=== PATIENT | male | born 1960 | race Caucasian/White ===

== ENCOUNTER 2017-09-06 09:08 | Inpatient (IN) | payer BC ==
[2017-09-06] MEDS ORDERED: ASPIRIN 325 MG TABLET PO ONE (09:32)
--- NOTE | 2017-09-06 09:34 | ER Document Report ---
ED Medical Screen (RME) - General Chief Complaint: Chest Pain > 30 Stated Complaint: CHEST PAIN Time Seen by Provider: 09/06/17 09:32 Mode of Arrival: Ambulatory Information source: Patient TRAVEL OUTSIDE OF THE [place] IN LAST 30 DAYS: No - HPI Patient complains to provider of: cp Onset: This morning - pt with onset of SSCP earlier this am -- has not had this before. Took "baby ASA" earlier - Related Data Allergies/Adverse Reactions: IVP dye Allergy (Uncoded 09/06/17 09:28) Physical Exam - Vital signs Vitals: Temp Pulse Resp BP Pulse Ox 97.8 F 79 20 154/93 H 93 09/06/17 09:24 09/06/17 09:24 09/06/17 09:24 09/06/17 09:24 09/06/17 09:24 Course - Vital Signs Vital signs: Temp Pulse Resp BP Pulse Ox 97.8 F 79 20 154/93 H 93 09/06/17 09:24 09/06/17 09:24 09/06/17 09:24 09/06/17 09:24 09/06/17 09:24
[2017-09-06 09:57] LABS: ABSOLUTE BASOPHILS # (AUTO) 0.1 10^3/uL (0.0-0.2); ABSOLUTE EOSINOPHILS # (AUTO) 0.1 10^3/uL (0.0-0.6); ABSOLUTE LYMPHOCYTES (AUTO) 2.6 10^3/uL (0.5-4.7); ABSOLUTE MONOCYTES (AUTO) 0.7 10^3/uL (0.1-1.4); BASOPHILS % (AUTO) 0.8 % (0-2); EOSINOPHILS % (AUTO) 1.3 % (0-6); HEMATOCRIT 49.4 % (37.9-51.0); HEMOGLOBIN 17.3 g/dL (13.5-17.0); LYMPHOCYTES % (AUTO) 27.6 % (13-45); MEAN CORPUSCULAR HEMOGLOBIN 31.8 pg (27.0-33.4); MEAN CORPUSCULAR VOLUME 91 fl (80-97); MONOCYTES % (AUTO) 7.5 % (3-13); PLATELET COUNT 204 10^3/uL (150-450); RED BLOOD COUNT 5.44 10^6/uL (4.35-5.55); RED CELL DISTRIBUTION WIDTH 12.5 % (11.5-14.0); SEGMENTED NEUTROPHILS % (AUTO) 62.8 % (42-78); TOTAL CELLS COUNTED % (AUTO) 100 %; WHITE BLOOD COUNT 9.6 10^3/uL (4.0-10.5)
[2017-09-06] MEDS ORDERED: LIDOCAINE 2% VISCOUS SOLN 20 ML UDCUP PO ONE (10:08)
[2017-09-06] MEDS ORDERED: MAG HYDROX/AL HYDROX/SIMETH SUSP 30 ML UDCUP PO ONE (10:08)
[2017-09-06] MEDS ORDERED: METOCLOPRAMIDE HCL ORAL SOLN 10 MG/10 ML UDCUP PO ONE (10:08)
[2017-09-06 10:18] LABS: ALANINE AMINOTRANSFERASE 45 U/L (21-72); ALBUMIN 4.4 g/dL (3.5-5.0); ALKALINE PHOSPHATASE 73 U/L (38-126); ANION GAP 9 (5-19); ASPARTATE AMINO TRANSFERASE 27 U/L (17-59); BILIRUBIN,DIRECT 0.3 mg/dL (0.0-0.4); BILIRUBIN,TOTAL 1.4 mg/dL (0.2-1.3); BLOOD UREA NITROGEN 19 mg/dL (7-20); CARBON DIOXIDE 27 mmol/L (22-30); CHLORIDE 105 mmol/L (98-107); CREATINE KINASE 96 U/L (55-170); GLUCOSE 145 mg/dL (75-110); POTASSIUM 4.4 mmol/L (3.6-5.0); SODIUM 141.2 mmol/L (137-145); TOTAL PROTEIN 7.2 g/dL (6.3-8.2)
[2017-09-06 10:28] LABS: CREATINE KINASE MB 1.84 ng/mL (<4.55)
[2017-09-06 10:31] LABS: TROPONIN I 0.034 ng/mL
--- NOTE | 2017-09-06 10:43 | RADIOLOGY REPORT (SQ) ---
EXAM DESCRIPTION: CHEST PA/LAT COMPLETED DATE/TIME: 09/06/2017 10:06 am REASON FOR STUDY: cp COMPARISON: 01/06/2008 EXAM PARAMETERS: NUMBER OF VIEWS: two views TECHNIQUE: Digital Frontal and Lateral radiographic views of the chest acquired. RADIATION DOSE: NA LIMITATIONS: none FINDINGS: LUNGS AND PLEURA: No infiltrate, masses or pneumothorax. Left pleural thickening. MEDIASTINUM AND HILAR STRUCTURES: No masses or contour abnormalities. HEART AND VASCULAR STRUCTURES: Heart normal size. No evidence for failure. BONES: No acute findings. HARDWARE: None in the chest. OTHER: No other significant finding. IMPRESSION: No acute disease. Left pleural thickening. TECHNICAL DOCUMENTATION: JOB ID: [id number] [id number] 2010 [employer]- All Rights Reserved
[2017-09-06] MEDS ORDERED: NITROGLYCERIN 2% OINTMENT 1 GM PACKET TP ONE (12:19)
[2017-09-06] MEDS ORDERED: DIPHENHYDRAMINE HCL 50 MG/ML VIAL IV ONE (12:40)
[2017-09-06] MEDS ORDERED: FAMOTIDINE INJ/PF 20 MG/2 ML SDV IV ONE (12:40)
[2017-09-06] MEDS ORDERED: METHYLPREDNISOLONE INJ 125 MG/2 ML SDV IV ONE (12:40)
[2017-09-06] MEDS ORDERED: NORMAL SALINE 1000 ML 1,000 ML IV ONE (12:43)
--- NOTE | 2017-09-06 13:31 | RADIOLOGY REPORT (SQ) ---
EXAM DESCRIPTION: CT ABD/PELVIS WITH IV ONLY COMPLETED DATE/TIME: 09/06/2017 1:09 pm REASON FOR STUDY: epigastric pain COMPARISON: 2007. TECHNIQUE: CT scan of the abdomen and pelvis performed using helical scanning technique with dynamic intravenous contrast injection. No oral contrast. Images reviewed with lung, soft tissue, and bone windows. Reconstructed coronal and sagittal MPR images reviewed. Delayed images for evaluation of the urinary system also acquired. All images stored on PACS. All CT scanners at this facility use dose modulation, iterative reconstruction, and/or weight based d osing when appropriate to reduce radiation dose to as low as reasonably achievable (ALARA). [facility]: Dose Right [facility]: CareDose [facility]: Dose Right [facility]: Teradose 4D [facility]: [employer] CONTRAST TYPE AND DOSE: contrast/concentration: Isovue 370.00 mg/ml; Total Contrast Delivered: 100.0 ml; Total Saline Delivered: 70.0 ml RENAL FUNCTION: Creatinine 1.35 RADIATION DOSE: CT Rad equipment meets quality standard of care and radiation dose reduction techniq ues were employed. CTDIvol: 15.6 - 18.2 mGy. DLP: 1883 mGy-cm.. LIMITATIONS: None. FINDINGS: LOWER CHEST: No significant findings. No nodules or infiltrates. LIVER: Normal size. No masses. No dilated ducts. SPLEEN: Normal size. No focal lesions. PANCREAS: No masses. No significant calcifications. No adjacent inflammation or peripancreatic fluid collections. Pancreatic duct not dilated. GALLBLADDER: Solitary sizable gallstone. Mild gallbladder distention but no wall thickening or surro unding fluid to suggest acute disease. No duct dilatation. ADRENAL GLANDS: No significant masses or asymmetry. RIGHT KIDNEY AND URETER: No solid masses. No significant calcification. No hydronephrosis or hydroure ter. LEFT KIDNEY AND URETER: No solid masses. No significant calcification. No hydronephrosis or hydrouret er. AORTA AND VESSELS: Atherosclerotic aorta. Patent major arterial and venous branches. No aneurysm or dissection. RETROPERITONEUM: No retroperitoneal adenopathy, hemorrhage or masses. BOWEL AND PERITONEAL CAVITY: Diverticulosis throughout the descending and sigmoid colon. Mild areas of wall thickening. Subtle adjacent areas of fat stranding could be chronic scar or reflect acute di verticulitis. No perforation or fluid collections. No small bowel obstruction evident. APPENDIX: Surgically absent. PELVIS: No mass. No free fluid. Normal bladder. ABDOMINAL WALL: Minimal fat containing umbilical hernia. No abdominal wall mass or bowel containing hernia. BONES: No significant or acute findings. OTHER: No other significant finding. IMPRESSION: 1. Cholelithiasis without CT evidence of acute cholecystitis. 2. Diverticulosis. Mil d diverticulitis could be present, depending on clinical presentation. 3. Atherosclerosis. TECHNICAL DOCUMENTATION: JOB ID: [id number] Quality ID # [id number]: Final reports with documentation of one or more dose reduction techniques (e.g., Au tomated exposure control, adjustment of the mA and/or kV according to patient size, use of iterative reconstruction technique) 2010 [employer]- All Rights Reserved
--- NOTE | 2017-09-06 13:31 | EKG REPORT ---
SEVERITY:- ABNORMAL ECG - SINUS RHYTHM MINIMAL ST DEPRESSION,RANJANA LATERAL LEADS : Confirmed by: Adalberto Burnham MD 06-Sep-2017 13:30:32
--- NOTE | 2017-09-06 16:00 | ER Document Report ---
ED General - General Chief Complaint: Chest Pain > 30 Stated Complaint: CHEST PAIN Time Seen by Provider: 09/06/17 09:32 Mode of Arrival: Ambulatory TRAVEL OUTSIDE OF THE [place] IN LAST 30 DAYS: No - HPI Patient complains to provider of: Chest pain epigastric pain Notes: History of diabetes. Patient denies any family history. Patient states this morning around 8:00 had substernal and epigastric pain no radiation that brought him to his knees. Patient did have associated nausea. Patient states now improvement of pain however still takes a deep breath and can feel in his epigastric region. Patient also states it does hurt when he touches his epigastric and substernal region. Patient denies any cardiac testing past denies any cardiac issues. Patient resting comfortably upon my evaluation with normal vital signs. - Related Data Allergies/Adverse Reactions: IVP dye Allergy (Uncoded 09/06/17 09:28) Past Medical History - General Information source: Patient - Social History Smoking Status: Former Smoker Frequency of alcohol use: None Drug Abuse: Marijuana Family History: Reviewed & Not Pertinent Patient has suicidal ideation: No Patient has homicidal ideation: No - Past Medical History Cardiac Medical History: Reports: Hx Hypercholesterolemia, Hx Hypertension Endocrine Medical History: Reports: Hx Diabetes Mellitus Type 2 Renal/ Medical History: Denies: Hx Peritoneal Dialysis Past Surgical History: Reports: Hx Appendectomy Review of Systems - Review of Systems Constitutional: No symptoms reported EENT: No symptoms reported Cardiovascular: Chest pain Respiratory: No symptoms reported Gastrointestinal: Nausea Genitourinary: No symptoms reported Male Genitourinary: No symptoms reported Musculoskeletal: No symptoms reported Skin: No symptoms reported Hematologic/Lymphatic: No symptoms reported Neurological/Psychological: No symptoms reported -: Yes All other systems reviewed and negative Physical Exam - Vital signs Vitals: Temp Pulse Resp BP Pulse Ox 97.8 F 79 20 154/93 H 93 09/06/17 09:24 09/06/17 09:24 09/06/17 09:24 09/06/17 09:24 09/06/17 09:24 Interpretation: Normal - General General appearance: Appears well, Alert - HEENT Head: Normocephalic, Atraumatic Eyes: Normal Pupils: PERRL - Respiratory Respiratory status: No respiratory distress Chest status: Tender - Tenderness palpation of the anterior chest Breath sounds: Normal Chest palpation: Normal - Cardiovascular Rhythm: Regular Heart sounds: Normal auscultation Murmur: No - Abdominal Inspection: Normal Distension: No distension Bowel sounds: Normal Tenderness: Tender - Epigastric tenderness no right upper quadrant no left upper quadrant tenderness epigastric tenderness mild. No: McBurney's point, Lo's sign, Guarding, Rebound Organomegaly: No organomegaly - Back Back: Normal, Nontender - Extremities General upper extremity: Normal inspection, Nontender, Normal color, Normal ROM , Normal temperature General lower extremity: Normal inspection, Nontender, Normal color, Normal ROM , Normal temperature, Normal weight bearing. No: Christie's sign - Neurological Neuro grossly intact: Yes Cognition: Normal Orientation: AAOx4 [place] Coma Scale Eye Opening: Spontaneous Josue Coma Scale Verbal: Oriented [place] Coma Scale Motor: Obeys Commands [place] Coma Scale Total: 15 Speech: Normal Motor strength normal: LUE, RUE, LLE, RLE Sensory: Normal - Psychological Associated symptoms: Normal affect, Normal mood - Skin Skin Temperature: Warm Skin Moisture: Dry Skin Color: Normal Course - Re-evaluation Re-evalutation: 09/06/17 15:57 Patient laboratory studies using concentration along with slightly elevated lipase. Slightly elevated total bilirubin to as well. Patient does not have any right upper quadrant tenderness mostly epigastric. Patient's troponin did return 0.03 with an EKG showing some ST segment depressions V3 V4 V5 no signs of STEMI however patient continued to have some dull aching in the area. This was not relieved with a GI cocktail. Patient was given nitroglycerin which did relieve his pain. Patient did undergo CT scan for evaluation of further GI causes pancreatitis is not seen on CT scan patient does have some gallstones are no signs of acute cholecystitis. CAT scan does mention possible segment of diverticulitis however patient has no lower abdominal tenderness and do not suspect diverticulitis at this time. I am concerned with EKG changes and chest pain patient with possible underlying cardiac issue for his pain. Also cannot totally rule out GI causes the patient does have gallstones although I do not see overt symptoms at this time on CAT scan. Laboratory studies also did not include or exclude GI symptoms slightly elevated lipase possibly gastritis although I will believe this would improve a GI cocktail. Did discuss with the hospitalist agrees that cardiac cause will need to be ruled out. Patient was admitted for further evaluation. - Vital Signs Vital signs: Temp Pulse Resp BP Pulse Ox 97.8 F 79 28 H 125/76 94 09/06/17 09:24 09/06/17 09:24 09/06/17 14:01 09/06/17 14:01 09/06/17 14:01 - Laboratory Result Diagrams: 09/06/17 09:45 09/06/17 09:45 Laboratory results interpreted by me: 09/06/17 09/06/17 09/06/17 09:45 09:45 09:45 Hgb 17.3 H Creatinine 1.35 H Est GFR (Non-Af Amer) 55 L Glucose 145 H Total Bilirubin 1.4 H Lipase 447.9 H Discharge - Discharge Clinical Impression: Slightly elevated lipase Chest pain Qualifiers: Chest pain type: unspecified Qualified Code(s): R07.9 - Chest pain, unspecified Cholelithiasis Qualifiers: Cholelithiasis location: gallbladder Cholecystitis presence: without cholecystitis Biliary obstruction: without biliary obstruction Qualified Code(s) : K80.20 - Calculus of gallbladder without cholecystitis without obstruction Condition: Good Disposition: ADMITTED OBSERVATION Admitting Provider: Hospitalist - [facility] Unit Admitted: Telemetry
[2017-09-06] MEDS ORDERED: NORMAL SALINE 1000 ML 1,000 ML IV PRN (17:47)
[2017-09-06] MEDS: OXYCODONE-ACETAMINOPHEN 5-325 MG TABLET PO PRN ×2 (18:20→23:20)
--- NOTE | 2017-09-06 18:21 | PDOC H&P ---
History of Present Illness Admission Date/PCP: 09/06/17 16:30 Patient complains of: chest pain/ epigastric pain History of Present Illness: EMEKA CHAUDHARI is a 56 year old male who presented to the ED with a 12 hour history of chest pain epigastric pain Patient was well until about 12 hours ago when he started having pressure-like in the epigastrium felt extremely nauseous the pain radiated to the back; he had no fever no chills Patient recalls a similar pain about a week ago that subsided and did not recur until now Upon evaluation in the ED the pain was about 8/10 severe It decreased in intensity EKG and cardiac enzymes were performed and were within normal range A CAT scan abdomen and pelvis was suggestive of gallstones and a lipase of was slightly elevated Patient was admitted on the hospitalist service for further evaluation and care to telemetry unit as an inpatient Past Medical History Cardiac Medical History: Reports: Hyperlipidema, Hypertension Endocrine Medical History: Reports: Diabetes Mellitus Type 2 Past Surgical History Past Surgical History: Reports: Appendectomy Social History Smoking Status: Former Smoker - Advance Directive Resuscitation Status: Full Code Surrogate healthcare decision maker:: Sondra Family History Family History: Reviewed & Not Pertinent, CAD, DM Parental Family History Reviewed: Yes Children Family History Reviewed: Yes Sibling(s) Family History Reviewed.: Yes Medication/Allergy Home Medications: Amlodipine Besylate 1 tab PO DAILY 09/06/17 Aspirin [Aspirin EC] 81 mg PO DAILY 09/06/17 Losartan/Hydrochlorothiazide [Losartan-Hctz 50-12.5 mg Tab] 1 tab PO DAILY 09/06 Metformin HCl [Metformin HCl ER] 500 mg PO DAILY 09/06/17 [place]-3/Dha/Epa/Fish Oil [Fish Oil 500 mg Softgel] 2 cap PO DAILY 09/06/17 Allergies/Adverse Reactions: IVP dye Allergy (Uncoded 09/06/17 09:28) Review of Systems Constitutional: ABSENT: chills, fever(s), headache(s), weight gain, weight loss Eyes: ABSENT: visual disturbances Ears: ABSENT: hearing changes Cardiovascular: ABSENT: chest pain, dyspnea on exertion, edema, orthropnea, palpitations Respiratory: ABSENT: cough, hemoptysis Gastrointestinal: PRESENT: abdominal pain - epigastric radiates to back, nausea , vomiting Genitourinary: ABSENT: dysuria, hematuria Musculoskeletal: ABSENT: joint swelling Integumentary: ABSENT: rash, wounds Neurological: ABSENT: abnormal gait, abnormal speech, confusion, dizziness, focal weakness, syncope Psychiatric: ABSENT: anxiety, depression, homidical ideation, suicidal ideation Hematologic/Lymphatic: ABSENT: easy bleeding, easy bruising Physical Exam Vital Signs: Temp Pulse Resp BP Pulse Ox 97.8 F 79 13 113/72 94 09/06/17 09:24 09/06/17 09:24 09/06/17 17:02 09/06/17 16:01 09/06/17 17:02 General appearance: PRESENT: no acute distress, cooperative Head exam: PRESENT: atraumatic Eye exam: PRESENT: conjunctiva pink, EOMI, PERRLA. ABSENT: scleral icterus Ear exam: PRESENT: normal external ear exam Neck exam: ABSENT: carotid bruit, JVD, lymphadenopathy, thyromegaly Respiratory exam: PRESENT: clear to auscultation andrea. ABSENT: rales, rhonchi, wheezes Cardiovascular exam: PRESENT: RRR. ABSENT: diastolic murmur, rubs, systolic murmur Pulses: PRESENT: normal dorsalis pedis pul GI/Abdominal exam: PRESENT: tenderness - epigastrium no guarding or rebound. ABSENT: distended, guarding, rebound Rectal exam: PRESENT: deferred Neurological exam: PRESENT: alert Psychiatric exam: PRESENT: appropriate affect, normal mood. ABSENT: homicidal ideation, suicidal ideation Skin exam: PRESENT: dry, intact, warm. ABSENT: cyanosis, rash Results Impressions: Chest X-Ray 09/06/17 09:32 IMPRESSION: No acute disease. Left pleural thickening. Abdomen/Pelvis CT 09/06/17 12:20 IMPRESSION: 1. Cholelithiasis without CT evidence of acute cholecystitis. 2. Diverticulosis. Mild diverticulitis could be present, depending on clinical presentation. 3. Atherosclerosis. Assessment & Plan - Diagnosis (1) Acute pancreatitis Qualifiers: Pancreatitis type: unspecified pancreatitis type Acute pancreatitis complication: unspecified Qualified Code(s): K85.90 - Acute pancreatitis without necrosis or infection, unspecified Is this a current diagnosis for this admission?: Yes Plan: Lipase slightly elevated Patient is extremely tender in the epigastrium This is likely gallstone pancreatitis An ultrasound of the right upper quadrant will be ordered in a.m. Surgical consult will be obtained (2) Chest pain Qualifiers: Chest pain type: unspecified Qualified Code(s): R07.9 - Chest pain, unspecified Is this a current diagnosis for this admission?: Yes Plan: serial troponins repeat EKG in am cardiac monitoring (3) Cholelithiasis Qualifiers: Cholelithiasis location: gallbladder Cholecystitis presence: without cholecystitis Biliary obstruction: without biliary obstruction Qualified Code(s): K80.20 - Calculus of gallbladder without cholecystitis without obstruction Is this a current diagnosis for this admission?: Yes - Time Time Spent with patient: Repeat EKG in a.m. serial troponins monitor admit the patient to telemetry as an inpatient Time Spent: 50 to 70 Minutes - Inpatient Certification Based on my medical assessment, after consideration of the patient's comorbidities, presenting symptoms, or acuity I expect that the services needed warrant INPATIENT care.: Yes I certify that my determination is in accordance with my understanding of Medicare's requirements for reasonable and necessary INPATIENT services [42 CFR 412.3e].: Yes Medical Necessity: Need For IV Fluids, Need For Continuous Telemetry Monitoring , Need for Pain Control
--- NOTE | 2017-09-06 18:22 | EKG REPORT ---
SEVERITY:- BORDERLINE ECG - SINUS RHYTHM BORDERLINE T ABNORMALITIES, INFERIOR LEADS : Confirmed by: Adalberto Burnham MD 06-Sep-2017 18:21:35
[2017-09-06] MEDS ORDERED: DEXTROSE 40% GEL 15 GM TUBE PO PRN ×2 (18:44)
[2017-09-06] MEDS ORDERED: GLUCAGON,HUMAN RECOMB 1 MG INJ SUBCUT PRN (18:44)
[2017-09-06] MEDS ORDERED: DEXTROSE 50%-WATER 25 GM/50 ML DISP.SYRIN IV PRN ×2 (18:44)
--- NOTE | 2017-09-06 19:00 | PDOC CONSULTATION ---
Consultation Consult Date: 09/06/17 Consult reason:: Gallstone pancreatitis History of Present Illness Admission Date/PCP: 09/06/17 16:30 Patient complains of: Abdominal pain History of Present Illness: This is a pleasant 56-year-old gentleman who presents to the emergency department with complaints of abdominal pain. Over the past 3-6 months he has had intermittent episodes of bloating and gaseous distention after eating. This would resolve after drinking a Dr. Pepper and burping. Last Monday he began having epigastric abdominal pain with some radiation to the back. This intensified today. He now describes sharp epigastric and right upper quadrant pain with radiation into his back. He has had some nausea but no vomiting. A CT scan was done in the emergency department which revealed evidence of a large gallstone. There is no biliary ductal dilation. There is no pericholecystic fluid. He was found to have lipase of 448. He is being admitted by the hospitalist medicine service and I was asked to see him in consultation. Of note he does have a history of hyperlipidemia. An ultrasound is pending. Past Medical History Cardiac Medical History: Reports: Hyperlipidema, Hypertension Endocrine Medical History: Reports: Diabetes Mellitus Type 2 Past Surgical History Past Surgical History: Reports: Appendectomy Social History Smoking Status: Former Smoker Frequency of Alcohol Use: Rare - Advance Directive Resuscitation Status: Full Code Family History Family History: Reviewed & Not Pertinent, CAD, DM Parental Family History Reviewed: No Children Family History Reviewed: No Sibling(s) Family History Reviewed.: No Medication/Allergy Home Medications: Amlodipine Besylate 1 tab PO DAILY 09/06/17 Aspirin [Aspirin EC] 81 mg PO DAILY 09/06/17 Losartan/Hydrochlorothiazide [Losartan-Hctz 50-12.5 mg Tab] 1 tab PO DAILY 09/06 Metformin HCl [Metformin HCl ER] 500 mg PO DAILY 09/06/17 Roy-3/Dha/Epa/Fish Oil [Fish Oil 500 mg Softgel] 2 cap PO DAILY 09/06/17 Allergies/Adverse Reactions: IVP dye Allergy (Uncoded 09/06/17 09:28) Physical Exam Vital Signs: Temp Pulse Resp BP Pulse Ox 97.8 F 79 13 113/72 94 09/06/17 09:24 09/06/17 09:24 09/06/17 17:02 09/06/17 16:01 09/06/17 17:02 General appearance: PRESENT: other - Well-nourished well-developed male appears somewhat uncomfortable. Eye exam: PRESENT: other - Sclerae is anicteric Neck exam: PRESENT: other Respiratory exam: PRESENT: clear to auscultation andrea Cardiovascular exam: PRESENT: RRR GI/Abdominal exam: PRESENT: other - Soft, tender in the right upper quadrant with a positive Lo sign Results Impressions: Chest X-Ray 09/06/17 09:32 IMPRESSION: No acute disease. Left pleural thickening. Abdomen/Pelvis CT 09/06/17 12:20 IMPRESSION: 1. Cholelithiasis without CT evidence of acute cholecystitis. 2. Diverticulosis. Mild diverticulitis could be present, depending on clinical presentation. 3. Atherosclerosis. Assessment & Plan - Diagnosis (2) Acute pancreatitis Qualifiers: Pancreatitis type: unspecified pancreatitis type Acute pancreatitis complication: unspecified Qualified Code(s): K85.90 - Acute pancreatitis without necrosis or infection, unspecified Is this a current diagnosis for this admission?: Yes (3) Cholelithiasis Qualifiers: Cholelithiasis location: gallbladder Cholecystitis presence: without cholecystitis Biliary obstruction: without biliary obstruction Qualified Code(s): K80.20 - Calculus of gallbladder without cholecystitis without obstruction Is this a current diagnosis for this admission?: Yes - Plan Summary Plan Summary: The patient has tenderness in the right upper quadrant and elevated lipase. The CT scan shows a single large solitary stone which would not be consistent with passing a stone to cause gallstone pancreatitis. An ultrasound is pending and this may help elucidate if there is additional sludge evident. I think it is reasonable to check a triglyceride level given his history of hyperlipidemia. I think the most likely source is indeed his gallbladder. Regardless of the source of his cryptitis, he is tender in the right upper quadrant his findings consistent with acute cholecystitis. He will be admitted to the hospitalist medicine service. We will give him additional IV fluids and we will repeat a lipase in the morning as well as check a triglyceride level. We will likely proceed with cholecystectomy in the morning.
[2017-09-06] MEDS: FAMOTIDINE INJ/PF 20 MG/2 ML SDV IV SCH (22:43)
[2017-09-06] MEDS ORDERED: INFLUENZA ADLT QUAD (36MOS+) 2017-18 VAC 0.5 ML SYR IM PRN (22:50)
[2017-09-07] MEDS: OXYCODONE-ACETAMINOPHEN 5-325 MG TABLET PO PRN ×2 (04:56→17:44)
--- NOTE | 2017-09-07 07:21 | RADIOLOGY REPORT (SQ) ---
EXAM DESCRIPTION: U/S ABDOMEN LIMITED W/O DOP COMPLETED DATE/TIME: 09/07/2017 7:02 am REASON FOR STUDY: gallstones / pancreatitis attn RTUQ COMPARISON: CT abdomen and pelvis 09/06/2017. TECHNIQUE: Grayscale images acquired of the right upper quadrant and recorded on PACS. Additional se lected color Doppler and spectral images recorded. LIMITATIONS: Acoustical interference from fat or from air in the bowel. FINDINGS: PANCREAS: Mostly obscured by overlying bowel gas, the visualized pancreas in the midline i s unremarkable. LIVER: Measures 16.8 cm. Coarsened echotexture, suggestive of fatty infiltration. LIVER VASCULATURE: Normal directional flow of the main portal vein. GALLBLADDER: Gallstone(s). No pericholecystic fluid. No wall thickening. ULTRASOUND-DETECTED AKERS'S SIGN: Negative. INTRAHEPATIC DUCTS AND COMMON DUCT: CBD and intrahepatic ducts normal caliber. INFERIOR VENA CAVA: Not well visualized. AORTA: No aneurysm in the visualized segments. RIGHT KIDNEY: Measures 10.9 cm in length. Normal echogenicity. No hydronephrosis. No calcifications. PERITONEAL CAVITY AND RIGHT PLEURAL SPACE: No ascites or effusion. IMPRESSION: 1. Fatty infiltration of the liver. 2. Cholelithiasis. No biliary ductal dilation. 3. Suboptimal visualization of the pancreas. TECHNICAL DOCUMENTATION: JOB ID: [id number] [id number] 2010 [employer]- All Rights Reserved
[2017-09-07 07:27] LABS: ALANINE AMINOTRANSFERASE 39 U/L (21-72); ALKALINE PHOSPHATASE 76 U/L (38-126); ANION GAP 11 (5-19); ASPARTATE AMINO TRANSFERASE 26 U/L (17-59); BILIRUBIN,DIRECT 0.2 mg/dL (0.0-0.4); BLOOD UREA NITROGEN 18 mg/dL (7-20); CALCIUM 9.3 mg/dL (8.4-10.2); CARBON DIOXIDE 21 mmol/L (22-30); CHLORIDE 106 mmol/L (98-107); CHOLESTEROL 225.06 mg/dL (0-200); GLUCOSE 176 mg/dL (75-110); LIPASE 63.3 U/L (23-300); POTASSIUM 4.5 mmol/L (3.6-5.0); SODIUM 138.4 mmol/L (137-145); TOTAL PROTEIN 6.8 g/dL (6.3-8.2); TRIGLYCERIDES 232 mg/dL (<150)
--- NOTE | 2017-09-07 07:32 | EKG REPORT ---
SEVERITY:- ABNORMAL ECG - SINUS RHYTHM NONSPECIFIC REPOL ABNORMALITY, DIFFUSE LEADS : Confirmed by: Adalberto Burnham MD 07-Sep-2017 07:31:36
[2017-09-07 07:38] LABS: DIRECT LDL 109 mg/dL (<100)
[2017-09-07 07:42] LABS: VLDL CHOLESTEROL 46.4 mg/dL (10-31)
[2017-09-07 07:43] LABS: FREE T4 (FREE THYROXINE) 1.13 ng/dL (0.78-2.19)
[2017-09-07 07:57] LABS: THYROID STIMULATING HORMONE 0.86 uIU/mL (0.47-4.68)
[2017-09-07] MEDS: AMLODIPINE BESYLATE 5 MG TABLET PO SCH (09:47)
[2017-09-07] MEDS: FAMOTIDINE INJ/PF 20 MG/2 ML SDV IV SCH ×2 (09:48→21:57)
[2017-09-07] MEDS ORDERED: OMEGA-3 ACID ETHYL ESTERS 1 GM CAPSULE PO SCH (10:00)
[2017-09-07] MEDS ORDERED: HYDROCHLOROTHIAZIDE 12.5 MG CAPSULE PO SCH ×2 (10:00→22:00)
[2017-09-07] MEDS ORDERED: (PENDING PHARMACY ID) (Losartan/Hydrochlorothiazide [Losartan-Hctz 50-12.5 Mg Tab] 1 TAB) PO SCH (10:00)
[2017-09-07] MEDS ORDERED: FISH OIL PO SCH (10:00)
[2017-09-07] MEDS ORDERED: LOSARTAN POTASSIUM 50 MG TABLET PO SCH ×2 (10:00→22:00)
[2017-09-07] MEDS ORDERED: EPA PO SCH (10:00)
[2017-09-07] MEDS ORDERED: OMEGA PO SCH (10:00)
[2017-09-07] MEDS ORDERED: DHA PO SCH (10:00)
--- NOTE | 2017-09-07 10:09 | PDOC PROGRESS REPORT ---
Subjective Progress Note for:: 09/07/17 Subjective:: Still having epigastric abdominal pain but less from last night. Reason For Visit: ACUTE PANCREATITIS, GALLSTONE, CHEST PAIN Physical Exam Vital Signs: Temp Pulse Resp BP Pulse Ox 97.6 F 78 14 120/83 94 09/07/17 07:34 09/07/17 08:02 09/07/17 07:34 09/07/17 07:34 09/07/17 07:34 Intake & Output 09/06/17 09/07/17 09/08/17 06:59 06:59 06:59 Intake Total 1300 Balance 1300 Weight 107.6 kg General appearance: PRESENT: no acute distress, cooperative Respiratory exam: PRESENT: clear to auscultation andrea Cardiovascular exam: PRESENT: RRR GI/Abdominal exam: PRESENT: other - Soft, mildly distended, epigastric and right upper quadrant abdominal tenderness without peritoneal signs. Results Laboratory Results: 09/07/17 06:43 09/07/17 09/07/17 06:43 06:43 Sodium 138.4 Potassium 4.5 Chloride 106 Carbon Dioxide 21 L Anion Gap 11 BUN 18 Creatinine 1.04 Est GFR ( Amer) > 60 Est GFR (Non-Af Amer) > 60 Glucose 176 H Calcium 9.3 Total Bilirubin 1.0 AST 26 ALT 39 Alkaline Phosphatase 76 Total Protein 6.8 Albumin 4.0 Triglycerides 232 H Cholesterol 225.06 H LDL Cholesterol Direct 109 H VLDL Cholesterol 46.4 H HDL Cholesterol 45 Lipase 63.3 TSH 0.86 Free T4 1.13 Impressions: Chest X-Ray 09/06/17 09:32 IMPRESSION: No acute disease. Left pleural thickening. Abdomen/Pelvis CT 09/06/17 12:20 IMPRESSION: 1. Cholelithiasis without CT evidence of acute cholecystitis. 2. Diverticulosis. Mild diverticulitis could be present, depending on clinical presentation. 3. Atherosclerosis. Abdomen Ultrasound 09/07/17 06:00 IMPRESSION: 1. Fatty infiltration of the liver. 2. Cholelithiasis. No biliary ductal dilation. 3. Suboptimal visualization of the pancreas. Assessment & Plan - Diagnosis (1) Gallstone pancreatitis Is this a current diagnosis for this admission?: Yes Plan: Improving with conservative measures. Will likely do laparoscopic cholecystectomy tomorrow. Keep the patient n.p.o.
[2017-09-07] MEDS: ASPIRIN 81 MG TABLET, ENT COATED PO SCH (10:11)
--- NOTE | 2017-09-07 14:11 | PDOC PROGRESS REPORT ---
Subjective Progress Note for:: 09/07/17 Subjective:: Still having some epigastric discomfort but feeling better than yesterday No nausea no vomiting no fever no chills Alert and awake No chest pains Reason For Visit: ACUTE PANCREATITIS, GALLSTONE, CHEST PAIN Physical Exam Vital Signs: Temp Pulse Resp BP Pulse Ox 97.7 F 84 16 124/77 95 09/07/17 12:00 09/07/17 12:00 09/07/17 12:00 09/07/17 12:00 09/07/17 12:00 Intake & Output 09/06/17 09/07/17 09/08/17 00:59 00:59 00:59 Intake Total 1300 Balance 1300 Weight 107.6 kg General appearance: PRESENT: no acute distress, cooperative Head exam: PRESENT: atraumatic Eye exam: PRESENT: conjunctiva pink, EOMI, PERRLA. ABSENT: scleral icterus Ear exam: PRESENT: normal external ear exam Neck exam: ABSENT: carotid bruit, JVD, lymphadenopathy, thyromegaly Respiratory exam: PRESENT: clear to auscultation andrea. ABSENT: rales, rhonchi, wheezes Cardiovascular exam: PRESENT: RRR. ABSENT: diastolic murmur, rubs, systolic murmur Pulses: PRESENT: normal dorsalis pedis pul GI/Abdominal exam: PRESENT: tenderness - epigastrium no guarding or rebound. ABSENT: distended, guarding, rebound Rectal exam: PRESENT: deferred Neurological exam: PRESENT: alert Psychiatric exam: PRESENT: appropriate affect, normal mood. ABSENT: homicidal ideation, suicidal ideation Skin exam: PRESENT: dry, intact, warm. ABSENT: cyanosis, rash Results Laboratory Results: 09/07/17 06:43 09/07/17 09/07/17 06:43 06:43 Sodium 138.4 Potassium 4.5 Chloride 106 Carbon Dioxide 21 L Anion Gap 11 BUN 18 Creatinine 1.04 Est GFR ( Amer) > 60 Est GFR (Non-Af Amer) > 60 Glucose 176 H Calcium 9.3 Total Bilirubin 1.0 AST 26 ALT 39 Alkaline Phosphatase 76 Total Protein 6.8 Albumin 4.0 Triglycerides 232 H Cholesterol 225.06 H LDL Cholesterol Direct 109 H VLDL Cholesterol 46.4 H HDL Cholesterol 45 Lipase 63.3 TSH 0.86 Free T4 1.13 Impressions: Chest X-Ray 09/06/17 09:32 IMPRESSION: No acute disease. Left pleural thickening. Abdomen/Pelvis CT 09/06/17 12:20 IMPRESSION: 1. Cholelithiasis without CT evidence of acute cholecystitis. 2. Diverticulosis. Mild diverticulitis could be present, depending on clinical presentation. 3. Atherosclerosis. Abdomen Ultrasound 09/07/17 06:00 IMPRESSION: 1. Fatty infiltration of the liver. 2. Cholelithiasis. No biliary ductal dilation. 3. Suboptimal visualization of the pancreas. Assessment & Plan - Diagnosis (1) Acute pancreatitis Qualifiers: Pancreatitis type: unspecified pancreatitis type Acute pancreatitis complication: unspecified Qualified Code(s): K85.90 - Acute pancreatitis without necrosis or infection, unspecified Is this a current diagnosis for this admission?: Yes (2) Chest pain Qualifiers: Chest pain type: unspecified Qualified Code(s): R07.9 - Chest pain, unspecified Is this a current diagnosis for this admission?: Yes (3) Cholelithiasis Qualifiers: Cholelithiasis location: gallbladder Cholecystitis presence: without cholecystitis Biliary obstruction: without biliary obstruction Qualified Code(s): K80.20 - Calculus of gallbladder without cholecystitis without obstruction Is this a current diagnosis for this admission?: Yes (4) Hyperlipidemia Qualifiers: Hyperlipidemia type: unspecified Qualified Code(s): E78.5 - Hyperlipidemia , unspecified Is this a current diagnosis for this admission?: Yes (5) Fatty liver Is this a current diagnosis for this admission?: Yes (6) Hyperglycemia Is this a current diagnosis for this admission?: Yes Plan: We will obtain a hemoglobin A1c - Time Time Spent with patient: Patient scheduled for lap trish in a.m. continue n.p.o. except water Continue IV fluids Noted that cardiac workup was essentially negative with troponins in the intermediate range and unchanged EKG Time Spent with patient: 25-34 minutes
[2017-09-07] MEDS ORDERED: DEXTROSE 40% GEL 15 GM TUBE PO PRN (14:12)
[2017-09-08] MEDS ORDERED: BUPIVACAINE HCL 0.25 % INJ/PF (2.5 MG/1 ML) 30 ML VIAL ONE (08:15)
[2017-09-08] MEDS ORDERED: LIDOCAINE 1% INJ-PF (10 MG/ML) 30 ML SDV ONE (08:55)
[2017-09-08] MEDS ORDERED: SUCCINYLCHOLINE CHLORIDE INJ 200 MG/10 ML VIAL ONE (09:52)
[2017-09-08] MEDS ORDERED: GLYCOPYRROLATE INJ 0.4 MG/2 ML VIAL ONE (09:52)
[2017-09-08] MEDS ORDERED: DEXAMETHASONE SOD PHOSPHATE INJ 4 MG/1 ML VIAL ONE (09:52)
[2017-09-08] MEDS ORDERED: ROCURONIUM BROMIDE INJ 50 MG/5 ML VIAL IV ONE (09:52)
[2017-09-08] MEDS ORDERED: NEOSTIGMINE METHYLSULFATE 10 MG/10 ML VIAL ONE (09:52)
[2017-09-08] MEDS ORDERED: KETOROLAC TROMETHAMINE 60 MG/2 ML SDV ONE (09:52)
[2017-09-08] MEDS ORDERED: CEFAZOLIN INJ 1 GM VIAL ONE (10:14)
[2017-09-08] MEDS ORDERED: PROPOFOL INJ 200 MG/20 ML VIAL IV ONE (10:34)
[2017-09-08] MEDS ORDERED: ACETAMINOPHEN 100 ML IV ONE (10:34)
[2017-09-08] MEDS ORDERED: MIDAZOLAM 2 MG/2 ML INJ ONE (10:34)
[2017-09-08] MEDS ORDERED: FENTANYL CITRATE INJ/PF 250 MCG/5 ML AMPULE ONE (10:34)
[2017-09-08] MEDS ORDERED: MORPHINE SULFATE 10 MG/ML INJ IV PRN (11:05)
[2017-09-08] MEDS ORDERED: DIPHENHYDRAMINE HCL 50 MG/ML VIAL IV PRN (11:05)
[2017-09-08] MEDS ORDERED: FENTANYL CITRATE INJ/PF 100 MCG/2 ML AMPUL IV PRN ×3 (11:05)
[2017-09-08] MEDS ORDERED: MEPERIDINE HCL/PF INJ 25 MG/1 ML DISP.SYRIN IV PRN (11:05)
[2017-09-08] MEDS ORDERED: OXYCODONE-ACETAMINOPHEN 5-325 MG TABLET PO PRN ×2 (11:05)
[2017-09-08] MEDS ORDERED: PROMETHAZINE HCL INJ 25 MG/1 ML VIAL IV PRN ×2 (11:05)
[2017-09-08] MEDS: FAMOTIDINE INJ/PF 20 MG/2 ML SDV IV SCH ×2 (12:21→21:59)
--- NOTE | 2017-09-08 12:37 | PDOC PROGRESS REPORT ---
Subjective Progress Note for:: 09/08/17 Subjective:: No subjective fresh complaints. Being treated for gallstone pancreatitis. Reason For Visit: ACUTE PANCREATITIS, GALLSTONE, CHEST PAIN Physical Exam Vital Signs: Temp Pulse Resp BP Pulse Ox 98.3 F 65 17 116/76 96 09/08/17 08:42 09/08/17 08:42 09/08/17 08:42 09/08/17 08:42 09/08/17 08:42 Intake & Output 09/07/17 09/08/17 09/09/17 06:59 06:59 06:59 Intake Total 1300 3600 Balance 1300 3600 Weight 107.6 kg 107.6 kg General appearance: PRESENT: no acute distress, morbidly obese Head exam: PRESENT: atraumatic, normocephalic Eye exam: PRESENT: conjunctiva pink, EOMI, PERRLA Ear exam: PRESENT: normal external ear exam Respiratory exam: PRESENT: clear to auscultation andrea, unlabored Cardiovascular exam: PRESENT: RRR, +S1, +S2 GI/Abdominal exam: PRESENT: normal bowel sounds, soft Neurological exam: PRESENT: alert, awake, oriented to person, oriented to time, oriented to situation, reflexes normal, CN II-XII grossly intact Results Laboratory Results: 09/07/17 06:43 09/08/17 05:20 Lipase 123.6 Impressions: Chest X-Ray 09/06/17 09:32 IMPRESSION: No acute disease. Left pleural thickening. Abdomen/Pelvis CT 09/06/17 12:20 IMPRESSION: 1. Cholelithiasis without CT evidence of acute cholecystitis. 2. Diverticulosis. Mild diverticulitis could be present, depending on clinical presentation. 3. Atherosclerosis. Abdomen Ultrasound 09/07/17 06:00 IMPRESSION: 1. Fatty infiltration of the liver. 2. Cholelithiasis. No biliary ductal dilation. 3. Suboptimal visualization of the pancreas. Assessment & Plan - Diagnosis (1) Gallstone pancreatitis Is this a current diagnosis for this admission?: Yes Plan: The patient is scheduled for a laparoscopic cholecystectomy today.
--- NOTE | 2017-09-08 12:58 | Operative Report ---
Operative Report DATE OF SURGERY: 09/08/17 PREOPERATIVE DIAGNOSIS: Gallstone Pancreatitis POSTOPERATIVE DIAGNOSIS: Gallstone Pancreatitis OPERATION: Laparoscopic Cholecystectomy with intraoperative cholangiogram SURGEON: Steph Solis ANESTHESIA: GA TISSUE REMOVED OR ALTERED: Gallbladder COMPLICATIONS: None ESTIMATED BLOOD LOSS: 20 ML INTRAOPERATIVE FINDINGS: Gallbladder distended with greenish-brown bile. mild amount of ascitic fluid in the right subhepatic space PROCEDURE: The patient was brought to the operating room and placed on the operating table. General endotracheal anesthesia was administered and he was positioned supine on the table. The abdomen was prepped with chloraprep and sterile drapes laid to expose the abdomen. A time-out was done. Under sterile aseptic conditions, access to the peritoneal cavity was gained using the open Tacho technique with a 10mm port at the umbilicus. Pneumoperitoneum was insufflated to 15mmHg. Initial diagnostic laparoscopy revealed some omentum over the gallbladder. Three additional ports were then placed - a 10mm midline subxiphoid port and two 5mm right subcostal ports, one in the midclavicular line and the other in the anterior axillary line. The patient was positioned in reverse trendelenberg, right side up. The gallbladder was first aspirated of the bile distending it. It was then grasped at the fundus with a grasper passed through the lateral right subcostal port and at the teodoro's pouch with a grasper passed through the medial right subcostal port. The peritoneum at the junction between the teodoro's pouch and the cystic duct was opened with the maryland dissector; this rent was then taken across the anterior and posterior aspects of the gallbladder with the hook laparoscopic monopolar electrosurgical unit (ESU). The Calot's triangle was then dissected to reveal the cystic duct and artery obtaining a critical view of safety as shown in the accompanying pictures. The duct was then partially transected close to the teodoro's pouch and an Cox clamp used to guide a cholangiocatheter into the cystic duct. A cholangiogram was then shot which did not reveal any filling defects in the biliary system with prompt drainage of contrast into the duodenum and prompt filling of the proximal biliary ducts. Following completion of the cholangiogram , the cystic duct was doubly clipped toward the patient side and singly clipped on the gallbladder side and transected between the clips. The cystic artery was similarly clipped and transected and the gallbladder resected off the gallbladder fossa with the hook ESU. The specimen was sent off the field and the subhepatic space irrigated with saline. Final inspection did not reveal any bleeding or bile leak. The pneumoperitoneum was desufflated and the ports removed. The umbilical port fascial layer was closed with 0-vicryl figure of eight stitch and all the skin wounds closed with 4-0 monocryl subcuticular stitches; they were infiltrated with local anesthesia, a 1:1 mixture of 1% Lidocaine and 0.25% bupivacaine a total of 20 ml, they were cleaned and dressed with dermabond. The patient tolerated the procedure well, was extubated in the operating room and taken to the PACU in stable condition.
[2017-09-08] MEDS: PROMETHAZINE HCL INJ 25 MG/1 ML VIAL ONE ×2 (13:07→13:20)
[2017-09-08] MEDS: AMLODIPINE BESYLATE 5 MG TABLET PO SCH (14:58)
[2017-09-08] MEDS: ASPIRIN 81 MG TABLET, ENT COATED PO SCH (14:58)
--- NOTE | 2017-09-08 15:46 | RADIOLOGY REPORT (SQ) ---
EXAM DESCRIPTION: CHOLANGIOGRAM OPERATIVE COMPLETED DATE/TIME: 09/08/2017 3:37 pm REASON FOR STUDY: CHOLANGIOGRAM IN OR COMPARISON: None. FLUOROSCOPY TIME: 1.2 minutes. The 5 images saved to PACS. TECHNIQUE: Cinegraphic images were obtained from an intraoperative cholangiogram. LIMITATIONS: None. FINDINGS: There is opacification of the bile ducts, cystic duct remnants and second portion of the d uodenum without evidence of fixed filling defect or significant extravasation. IMPRESSION: INTRAOPERATIVE CHOLANGIOGRAM. COMMENT: Quality ID [id number]: Final reports for procedures using fluoroscopy that document radiation exp osure indices, or exposure time and number of fluorographic images (if radiation exposure indices are not available) TECHNICAL DOCUMENTATION: JOB ID: [id number] [employer]- All Rights Reserved
[2017-09-08] MEDS: GEMFIBROZIL 600 MG TABLET PO SCH (17:27)
[2017-09-08] MEDS: METFORMIN HCL 500 MG TABLET PO SCH (17:27)
[2017-09-08] MEDS: OXYCODONE-ACETAMINOPHEN 5-325 MG TABLET PO PRN ×2 (17:30→21:55)
--- NOTE | 2017-09-08 20:04 | PDOC PROGRESS REPORT ---
Subjective Progress Note for:: 09/08/17 Subjective:: Patient had lap trish cystectomy today no nausea no vomiting no fever Reason For Visit: ACUTE PANCREATITIS, GALLSTONE, CHEST PAIN Physical Exam Vital Signs: Temp Pulse Resp BP Pulse Ox 98.7 F 74 16 133/61 H 92 09/08/17 19:00 09/08/17 19:00 09/08/17 19:00 09/08/17 19:00 09/08/17 19:00 Intake & Output 09/07/17 09/08/17 09/09/17 00:59 00:59 00:59 Intake Total 3100 4090 Output Total 14 Balance 3100 4076 Weight 107.6 kg 107.6 kg Head exam: PRESENT: atraumatic, normocephalic Eye exam: PRESENT: conjunctiva pink, EOMI, PERRLA. ABSENT: scleral icterus Neck exam: ABSENT: carotid bruit, JVD, lymphadenopathy, thyromegaly Respiratory exam: PRESENT: clear to auscultation andrea. ABSENT: rales, rhonchi, wheezes Cardiovascular exam: PRESENT: RRR. ABSENT: diastolic murmur, rubs, systolic murmur GI/Abdominal exam: PRESENT: distended, tenderness - Diffuse Extremities exam: PRESENT: calf tenderness Neurological exam: PRESENT: alert, awake, oriented to person, oriented to place , oriented to time, oriented to situation, CN II-XII grossly intact. ABSENT: motor sensory deficit Results Laboratory Results: 09/07/17 06:43 09/08/17 05:20 Lipase 123.6 Impressions: Chest X-Ray 09/06/17 09:32 IMPRESSION: No acute disease. Left pleural thickening. Abdomen/Pelvis CT 09/06/17 12:20 IMPRESSION: 1. Cholelithiasis without CT evidence of acute cholecystitis. 2. Diverticulosis. Mild diverticulitis could be present, depending on clinical presentation. 3. Atherosclerosis. Abdomen Ultrasound 09/07/17 06:00 IMPRESSION: 1. Fatty infiltration of the liver. 2. Cholelithiasis. No biliary ductal dilation. 3. Suboptimal visualization of the pancreas. Cholangiogram 09/08/17 00:00 IMPRESSION: INTRAOPERATIVE CHOLANGIOGRAM. Assessment & Plan - Diagnosis (1) Acute pancreatitis Qualifiers: Pancreatitis type: unspecified pancreatitis type Acute pancreatitis complication: unspecified Qualified Code(s): K85.90 - Acute pancreatitis without necrosis or infection, unspecified Is this a current diagnosis for this admission?: Yes (2) Chest pain Qualifiers: Chest pain type: unspecified Qualified Code(s): R07.9 - Chest pain, unspecified Is this a current diagnosis for this admission?: Yes (3) Cholelithiasis Qualifiers: Cholelithiasis location: gallbladder Cholecystitis presence: without cholecystitis Biliary obstruction: without biliary obstruction Qualified Code(s): K80.20 - Calculus of gallbladder without cholecystitis without obstruction Is this a current diagnosis for this admission?: Yes (4) Hyperlipidemia Qualifiers: Hyperlipidemia type: unspecified Qualified Code(s): E78.5 - Hyperlipidemia , unspecified Is this a current diagnosis for this admission?: Yes (5) Fatty liver Is this a current diagnosis for this admission?: Yes (6) Hyperglycemia Is this a current diagnosis for this admission?: Yes - Time Time Spent with patient: Patient may be discharged in a.m. if stable as per surgery Time Spent with patient: 25-34 minutes
[2017-09-08] MEDS ORDERED: HYDROCHLOROTHIAZIDE 12.5 MG CAPSULE PO SCH (22:00)
[2017-09-08] MEDS ORDERED: LOSARTAN POTASSIUM 50 MG TABLET PO SCH (22:00)
[2017-09-09] MEDS: OXYCODONE-ACETAMINOPHEN 5-325 MG TABLET PO PRN (03:30)
[2017-09-09] MEDS: AMLODIPINE BESYLATE 5 MG TABLET PO SCH (09:54)
[2017-09-09] MEDS: FAMOTIDINE INJ/PF 20 MG/2 ML SDV IV SCH (09:54)
[2017-09-09] MEDS: ASPIRIN 81 MG TABLET, ENT COATED PO SCH (09:56)
[2017-09-09] MEDS ORDERED: FISH OIL PO SCH (10:00)
[2017-09-09] MEDS ORDERED: OMEGA-3 ACID ETHYL ESTERS 1 GM CAPSULE PO SCH (10:00)
[2017-09-09] MEDS ORDERED: (PENDING PHARMACY ID) (Losartan/Hydrochlorothiazide [Hyzaar 100-12.5 Tablet] 1 EACH) PO SCH (10:00)
[2017-09-09] MEDS ORDERED: DHA PO SCH (10:00)
[2017-09-09] MEDS ORDERED: ASPIRIN 81 MG TABLET, ENT COATED PO SCH (10:00)
[2017-09-09] MEDS ORDERED: EPA PO SCH (10:00)
[2017-09-09] MEDS ORDERED: (PENDING PHARMACY ID) (Metformin Hcl [Glucophage Xr 500 Mg Tablet] 500 MG) PO SCH (10:00)
[2017-09-09] MEDS ORDERED: AMLODIPINE BESYLATE 5 MG TABLET PO SCH (10:00)
[2017-09-09] MEDS ORDERED: OMEGA PO SCH (10:00)
[2017-09-09] MEDS: GEMFIBROZIL 600 MG TABLET PO SCH (11:15)
[2017-09-09] MEDS: METFORMIN HCL 500 MG TABLET PO SCH (11:15)
--- NOTE | 2017-09-09 12:12 | PDOC DISCHARGE SUMMARY ---
General - Admit/Disc Date/PCP Admission Date/Primary Care Provider: 09/06/17 16:30 Discharge Date: 09/09/17 - Discharge Diagnosis (1) Gallstone pancreatitis Is this a current diagnosis for this admission?: Yes Summary: Resolved (2) Status post cholecystectomy Is this a current diagnosis for this admission?: Yes Summary: Post op choleycystectomy (3) Fatty liver Is this a current diagnosis for this admission?: Yes (4) Hyperglycemia Is this a current diagnosis for this admission?: Yes Summary: Continue metformin (5) Hyperlipidemia Is this a current diagnosis for this admission?: Yes Summary: Continue home lopid - Additional Information Resuscitation Status: Full Code Discharge Diet: Regular Discharge Activity: Activity As Tolerated, Balance Activity w/Rest Prescriptions: Oxycodone HCl/Acetaminophen [Percocet 5-325 mg Tablet] 1 tab PO Q4HP PRN 5 Days #30 tablet PRN Reason: Home Medications: Amlodipine Besylate [Norvasc 5 mg Tablet] 5 mg PO DAILY 09/07/17 Aspirin [Aspirin EC] 81 mg PO DAILY 09/07/17 Gemfibrozil [Lopid 600 mg Tablet] 600 mg PO BID 09/07/17 Losartan/Hydrochlorothiazide [Hyzaar 100-12.5 Tablet] 1 each PO DAILY 09/07/17 Metformin HCl [Glucophage XR 500 mg Tablet] 500 mg PO DAILY 09/07/17 [place]-3/Dha/Epa/Fish Oil [Fish Oil 500 mg Softgel] 2 cap PO DAILY 09/07/17 Oxycodone HCl/Acetaminophen [Percocet 5-325 mg Tablet] 1 tab PO Q4HP PRN 5 Days #30 tablet 09/09/17 History of Present Illness Patient complains of: Abdominal pain History of Present Illness: EMEKA CHAUDHARI is a 56 year old male who presented to the ED with a 12 hour history of chest pain epigastric pain Patient was well until about 12 hours ago when he started having pressure-like in the epigastrium felt extremely nauseous the pain radiated to the back; he had no fever no chills Patient recalls a similar pain about a week ago that subsided and did not recur until now Upon evaluation in the ED the pain was about 8/10 severe It decreased in intensity EKG and cardiac enzymes were performed and were within normal range A CAT scan abdomen and pelvis was suggestive of gallstones and a lipase of was slightly elevated Patient was admitted on the hospitalist service for further evaluation and care to telemetry unit as an inpatient Hospital Course Hospital Course: Patient was admitted to the hospitalist service on telemetry. CT of the abdomen/ pelvis and ultrasound of the abdomen showed cholithiasis. Surgery was consulted to see the patient. He was given IV fluid , analgesics and antiemetics for nausea. Pancreatitis resolved. He was taken to the OR on 09/08/2017 for laparoscopic choleycystectomy. He tolerated the procedure well. He is tolerating a regular diet today. His pain is well controlled and he feels ready for discharge. Ok with surgery as well Physical Exam Vital Signs: Temp Pulse Resp BP Pulse Ox 97.7 F 71 18 119/74 94 09/09/17 11:05 09/09/17 11:05 09/09/17 11:05 09/09/17 11:05 09/09/17 11:05 Intake & Output 09/08/17 09/09/17 09/10/17 06:59 06:59 06:59 Intake Total 3600 2897 Output Total 14 Balance 3600 2883 Weight 107.6 kg 106.1 kg General appearance: PRESENT: no acute distress, obese, well-developed, well- nourished Head exam: PRESENT: atraumatic, normocephalic Eye exam: PRESENT: conjunctiva pink, EOMI, PERRLA. ABSENT: scleral icterus Ear exam: PRESENT: normal external ear exam Mouth exam: PRESENT: moist, tongue midline Neck exam: ABSENT: carotid bruit, JVD, lymphadenopathy, thyromegaly Respiratory exam: PRESENT: clear to auscultation andrea. ABSENT: rales, rhonchi, wheezes Cardiovascular exam: PRESENT: RRR. ABSENT: diastolic murmur, rubs, systolic murmur Pulses: PRESENT: normal dorsalis pedis pul Vascular exam: PRESENT: normal capillary refill GI/Abdominal exam: PRESENT: hypoactive bowel sounds - around laporoscopic incisions, soft, tenderness Rectal exam: PRESENT: deferred Extremities exam: PRESENT: full ROM. ABSENT: calf tenderness, clubbing, pedal edema Neurological exam: PRESENT: alert, awake, oriented to person, oriented to place , oriented to time, oriented to situation, CN II-XII grossly intact. ABSENT: motor sensory deficit Psychiatric exam: PRESENT: appropriate affect, normal mood. ABSENT: homicidal ideation, suicidal ideation Skin exam: PRESENT: dry, intact, warm. ABSENT: cyanosis, rash Results Laboratory Results: 09/07/17 06:43 Impressions: Chest X-Ray 09/06/17 09:32 IMPRESSION: No acute disease. Left pleural thickening. Abdomen/Pelvis CT 09/06/17 12:20 IMPRESSION: 1. Cholelithiasis without CT evidence of acute cholecystitis. 2. Diverticulosis. Mild diverticulitis could be present, depending on clinical presentation. 3. Atherosclerosis. Abdomen Ultrasound 09/07/17 06:00 IMPRESSION: 1. Fatty infiltration of the liver. 2. Cholelithiasis. No biliary ductal dilation. 3. Suboptimal visualization of the pancreas. Cholangiogram 09/08/17 00:00 IMPRESSION: INTRAOPERATIVE CHOLANGIOGRAM. Qualifiers PATEINT BEING DISCHARGED WITH ANY OF THE FOLLOWING DIAGNOSIS?: No Plan Discharge Plan: Home with family Time Spent: Less than 30 Minutes
[2017-09-09 12:29] VITALS: BP 116/76
--- NOTE | 2017-09-09 21:55 | PDOC PROGRESS REPORT ---
Subjective Progress Note for:: 09/09/17 Subjective:: POD #1 s/p laparoscopic cholecystectomy with intraoperative cholangiogram Is doing well No fever, jaundice or undue abdominal pain. Reason For Visit: ACUTE PANCREATITIS, GALLSTONE, CHEST PAIN Physical Exam Vital Signs: Temp Pulse Resp BP Pulse Ox 97.7 F 71 18 116/76 94 09/09/17 12:26 09/09/17 12:26 09/09/17 12:26 09/09/17 12:26 09/09/17 12:26 Intake & Output 09/08/17 09/09/17 09/10/17 06:59 06:59 06:59 Intake Total 3600 2897 Output Total 14 Balance 3600 2883 Weight 107.6 kg 106.1 kg General appearance: PRESENT: no acute distress Eye exam: PRESENT: EOMI Respiratory exam: PRESENT: clear to auscultation andrea, unlabored Cardiovascular exam: PRESENT: +S1, +S2 GI/Abdominal exam: PRESENT: normal bowel sounds, soft, other - port site incisions are clean, dry, intact Neurological exam: PRESENT: alert, awake, oriented to person, oriented to place , oriented to time, oriented to situation, CN II-XII grossly intact Results Laboratory Results: 09/07/17 06:43 Impressions: Chest X-Ray 09/06/17 09:32 IMPRESSION: No acute disease. Left pleural thickening. Abdomen/Pelvis CT 09/06/17 12:20 IMPRESSION: 1. Cholelithiasis without CT evidence of acute cholecystitis. 2. Diverticulosis. Mild diverticulitis could be present, depending on clinical presentation. 3. Atherosclerosis. Abdomen Ultrasound 09/07/17 06:00 IMPRESSION: 1. Fatty infiltration of the liver. 2. Cholelithiasis. No biliary ductal dilation. 3. Suboptimal visualization of the pancreas. Cholangiogram 09/08/17 00:00 IMPRESSION: INTRAOPERATIVE CHOLANGIOGRAM. Assessment & Plan - Diagnosis (1) Gallstone pancreatitis Is this a current diagnosis for this admission?: Yes Plan: Can be discharged home today. To follow in surgical outpatient. - Time Time Spent with patient: 15-24 minutes
== END 2017-09-09 12:30 | disposition home or self-care (01) | DRG 418 ==
LOC: ER 09:08 → OBSVTOIN 16:30 → EH 16:30 → 4S 22:13 → 4W 09-09 08:16
PROVIDERS: ADMIT Emergency Medicine; ATTEND Emergency Medicine
PROC: BF101ZZ Fluoroscopy of Bile Ducts using Low Osmolar Contrast (ICD-10-PCS; 2017-09-08)
PROC: 0FT44ZZ Resection of Gallbladder, Percutaneous Endoscopic Approach (ICD-10-PCS; principal; 2017-09-08 09:30)
DX: K85.10 Biliary acute pancreatitis without necrosis or infection (principal); K80.10 Calculus of gallbladder with chronic cholecystitis without obstruction; E78.5 Hyperlipidemia, unspecified; I10 Essential (primary) hypertension; K76.0 Fatty (change of) liver, not elsewhere classified; E11.65 Type 2 diabetes mellitus with hyperglycemia; Z90.49 Acquired absence of other specified parts of digestive tract; Z82.49 Family history of ischemic heart disease and other diseases of the circulatory system; Z83.3 Family history of diabetes mellitus; Z88.8 Allergy status to other drugs, medicaments and biological substances; Z79.82 Long term (current) use of aspirin; Z91.041 Radiographic dye allergy status; Z87.891 Personal history of nicotine dependence
CPT/HCPCS: 36415; 71046; 74177; 74300; 76705; 790; 80048; 80053; 80061; 80076; 82550; 82553; 82962; 83690; 84439; 84443; 84478; 84484; 85025; 88304; 90686; 93005; 93010; 96361; 96374; 96375; 99285; J0131; J0330; J0690; J1100; J1200; J1885; J2250; J2550; J2704; J2930; J3010; J3490; J7030; S0028